=== PATIENT | male | born 1985 | race Hispanic/Latino ===

== ENCOUNTER 2021-05-24 11:23 | Emergency (ER) | payer OTHER ==
[~2021-05-24] VITALS: Ht 162.6 cm; Wt 81.6 kg
[2021-05-24 11:25] VITALS: BP 130/69
[2021-05-24] MEDS ORDERED: ACETAMINOPHEN 500 MG TABLET PO SCH (12:30)
[2021-05-24] MEDS ORDERED: IVERMECTIN PO (13:12)
[2021-05-24] MEDS ORDERED: ACET-66 PO (13:17)
[2021-05-24] MEDS ORDERED: AZIT500T4 PO (13:17)
[2021-05-24] MEDS ORDERED: IBUP-2070 PO (13:17)
== END 2021-05-24 13:29 ==
LOC: EDH 11:23
DX: U07.1 COVID-19 (principal); R51.9 Headache, unspecified
CPT/HCPCS: 71045; 87635; 99284; C9803